=== PATIENT | male | born 1990 | race Caucasian/White ===

== ENCOUNTER 2021-12-06 16:10 | Emergency (ER) | payer OTHER, SELFPAY ==
[2021-12-06 16:27] VITALS: BP 120/62; PULSE 67; RESP 16; TEMP 37.1; O2SAT 98
--- NOTE | 2021-12-06 17:51 | ED.URI ---
HPI - URI/Sore Throat General Chief Complaint: Upper Respiratory Infection Stated Complaint: Sore Throat Time Seen by Provider: 12/06/21 17:30 Source: RN notes reviewed and old records reviewed Mode of arrival: ambulatory Limitations: no limitations History of Present Illness HPI Narrative: 31-year-old male who presents to [facility] care with complaints of sore throat which started yesterday about 3:30- 4:00 with a low grade fever. Patient denies any chills or sweats or any body aches, Patient states that throat feels sore, clogged and knotted with difficulty swallowing, denies any shortness of breath or any cough, Patient denies any history of acid reflux or history of indigestion. Patient has not taken any OTC medications for his symptoms. MD elicited complaint: sore throat Related Data Allergies Allergy/AdvReac Type Severity Reaction Status Date / Time No Known Allergies Allergy Verified 12/07/21 23:40 Review of Systems Review of Systems: CONSTITUTIONAL: Reports low grade fever,no chills, or sweats. EYES: Denies visual changes, redness, or discharge. ENT: Denies rhinorrhea, congestion, positive for sore throat, no otalgia. CARDIOVASCULAR: Denies chest pain, palpitations, or edema. RESPIRATORY: Denies cough or dyspnea. GASTROINTESTINAL: Denies abdominal pain, nausea, vomiting, or diarrhea. GENITOURINARY: Denies dysuria or hematuria. SKIN: Denies rash or itching. MUSCULOSKELETAL: Denies back pain, joint pain, or myalgia. NEUROLOGIC: Denies headache, numbness, or weakness. PSYCHIATRIC: Denies anxiety or depression. PMFSH Surgical History Surgical History No history of previous surgery Social History Social History Smoking status: Current every day smoker Tobacco type: cigarettes Alcohol intake: never Substance use type: marijuana Gender identity (if verbalized by the patient): Male Exam Narrative: GENERAL: Well-appearing, well-nourished, and in no acute distress. HEAD: Normocephalic, atraumatic. EYES: PERRLA and EOMI. ENT: Nares clear, no rhinorrhea or epistaxis. Mucous membranes moist.TM's normal with good light reflex, throat with some redness no lesions or exudates or tonsil swelling NECK: Supple. No lymphadenopathy CHEST: Clear to auscultation. No respiratory distress.SAO2 98% on room air HEART: Regular rate and rhythm. No murmur heard. Normal peripheral pulses. ABDOMEN: Soft, nontender, nondistended, normal active bowel sounds. EXTREMITIES: Normal range of motion. No edema. SKIN: Warm, dry, no rash. NEURO: No focal deficits. Alert and oriented x3. Course Course Level of Care: Express Care Visit Vital Signs Vital signs: Vital Signs Temperature 37.1 C 12/06/21 16:27 Pulse Rate 67 12/06/21 16:27 Respiratory Rate 16 12/06/21 16:27 Blood Pressure 120/62 12/06/21 16:27 Pulse Oximetry 98 12/06/21 16:27 Temperature 37.1 C 12/06/21 16:27 Pulse Rate 67 12/06/21 16:27 Respiratory Rate 16 12/06/21 16:27 Blood Pressure 120/62 12/06/21 16:27 Pulse Oximetry 98 12/06/21 16:27 MDM - URI/Sore Throat Differential Diagnosis Differential diagnosis: Likely upper respiratory infection, pharyngitis and other (strep throat) Medical Records Attestation: I reviewed the patient's medical records. Lab Data Attestation: I reviewed the patient's lab results. Lab results narrative: strep screen neg Labs: Strep Screen Presumptive Negative *(Reference Range: Negative)* Critical Care Time Critical Care Time Critical Care Time: No Discharge Plan Discharge Clinical Impression: Pharyngitis Patient Disposition: Home, Self-Care Condition: Stable Instructions: Pharyngitis (ED) Additional Instructions: Your strep test today was negative. A throat culture will be sent to the laboratory for further testing. IF the
== END 2021-12-06 18:10 | disposition home or self-care (01) ==
PROVIDERS: Emergency Provider Registered Nurse
DX: J02.9 Acute pharyngitis, unspecified (principal); F17.210 Nicotine dependence, cigarettes, uncomplicated
CPT/HCPCS: 87081; 87880; 99213; G0463

== ENCOUNTER 2021-12-07 23:01 | Emergency (ER) | payer OTHER, SELFPAY ==
[2021-12-07 23:03] VITALS: BP 166/92; PULSE 80; RESP 16; TEMP 36.4; O2SAT 100
--- NOTE | 2021-12-08 01:06 | ED.NECK ---
HPI - Neck Pain/Injury General Chief Complaint: Neck Pain/Injury Stated Complaint: neck swelling Time Seen by Provider: 12/08/21 00:21 Source: patient History of Present Illness HPI Narrative: Patient presents with sore throat. Has had symptoms for the past couple days was seen in urgent care had a negative strep swab and was started on steroids. Patient did not take any of his steroids feeling symptoms are getting better but he is having a hard time sleeping tonight because he felt like he is having hard time breathing so he came to the ER for evaluation. Feels like his throat was closing up he is feeling improved at the time of ER evaluation. He denies irritation in throat worse with swallowing reports mild cough denies any lightheadedness or dizziness. Reports some subjective fevers at home. Denies any nausea or vomiting. Related Data Allergies Allergy/AdvReac Type Severity Reaction Status Date / Time No Known Allergies Allergy Verified 12/07/21 23:40 Review of Systems Review of Systems: CONSTITUTIONAL: Denies fever, chills, or sweats. EYES: Denies visual changes, redness, or discharge. ENT: Denies rhinorrhea, congestion, or otalgia. CARDIOVASCULAR: Denies chest pain, palpitations, or edema. RESPIRATORY: Denies cough or dyspnea. GASTROINTESTINAL: Denies abdominal pain, nausea, vomiting, or diarrhea. GENITOURINARY: Denies dysuria or hematuria. SKIN: Denies rash or itching. MUSCULOSKELETAL: Denies back pain, joint pain, or myalgia. NEUROLOGIC: Denies headache, numbness, dizziness, or weakness. PSYCHIATRIC: Denies anxiety or depression. All systems reviewed & are unremarkable except as noted in HPI and below PMFSH Surgical History Surgical History No history of previous surgery Social History Social History Smoking status: Current every day smoker Tobacco type: cigarettes Alcohol intake: never Substance use type: marijuana Gender identity (if verbalized by the patient): Male Exam Narrative: GENERAL: Well-appearing, well-nourished, and in no acute distress. HEAD: Normocephalic, atraumatic. EYES: PERRLA and EOMI. ENT: Nares clear, no rhinorrhea or epistaxis. Mucous membranes moist. Diffuse posterior erythema no uvular deviation no exudates NECK: Supple. No masses. No JVD no lymphadenopathy CHEST: Clear to auscultation. No respiratory distress. No wheezes rales or rhonchi HEART: Regular rate and rhythm. No murmur heard. Normal peripheral pulses. EXTREMITIES: Normal range of motion. No edema. SKIN: Warm, dry, no rash. NEURO: No focal deficits. Alert and oriented x3. PSYCH: Normal mood and affect. Course Vital Signs Vital signs: Vital Signs Temperature 36.4 C 12/07/21 23:03 Pulse Rate 80 12/07/21 23:03 Respiratory Rate 16 12/07/21 23:03 Blood Pressure 166/92 H 12/07/21 23:03 Pulse Oximetry 100 12/07/21 23:03 Temperature 36.4 C 12/07/21 23:03 Pulse Rate 77 12/08/21 01:16 Respiratory Rate 16 12/08/21 01:16 Blood Pressure 136/92 H 12/08/21 01:16 Pulse Oximetry 98 12/08/21 01:16 MDM - Neck Pain/Injury MDM Narrative Medical decision making narrative: H&P as above, vss, pt looks clinically well, exam injection in the posterior pharynx, labs/img considered, symptomatic relief available as needed, on reevaluation pt continues to looks clinically well. Suspect pharyngitis, dns airway compromise, peritonsillar abscess, food impaction as patient is talking comfortably and tolerating his secretions. plan to tx/monitor as op w/ pcm f/u findings/plan discussed with pt, pt agree/comfortable with plan, return precautions given Discharge Plan Discharge Clinical Impression: Pharyngitis Qualifiers: Pharyngitis/tonsillitis etiology: unspecified etiology Qualified Code(s): J02.9 - Acute pharyngitis, unspecified Patient Disposition: Home, Self-Care Condition: Improve
[2021-12-08] MEDS: predniSONE 20 MG TABLET 60 MG PO (01:07)
[2021-12-08] MEDS: KETOROLAC 30 MG/ML VIAL (*BKC) IM (01:08)
[2021-12-08 01:16] VITALS: BP 136/92; PULSE 77; RESP 16; O2SAT 98
== END 2021-12-08 01:15 | disposition home or self-care (01) ==
PROVIDERS: Emergency Provider Emergency Medicine
DX: J02.9 Acute pharyngitis, unspecified (principal); F17.210 Nicotine dependence, cigarettes, uncomplicated
CPT/HCPCS: 96372; 99283; J1885; J7512

== ENCOUNTER 2025-03-21 16:34 | Emergency (ER) | payer MEDICARE, SELFPAY ==
--- NOTE | ~2025-03-21 | XR_ITS ---
Exam: Left ankle minimum 3 views. Clinical history: Rolled left ankle/foot. Pain. TECHNIQUE: 4 images of the left ankle were obtained. Comparisons: None. FINDINGS: Bone mineralization is within normal limits. No fracture. No dislocation. Soft tissue swelling about the left ankle. Talar dome is unremarkable. IMPRESSION: 1. No acute bony abnormality identified. If symptoms persist or worsen, consider a short-term follow-up study or additional imaging for furthe r assessment. Reviewed, dictated and finalized at location A. IMPRESSION: 1. No acute bony abnormality identified. If symptoms persist or worsen, consider a short-term follow-up study or additio nal imaging for further assessment.
--- NOTE | ~2025-03-21 | XR_ITS ---
Exam: Left foot x-rays minimum 3 views. TECHNIQUE: 4 images of the left foot were obtained. CLINICAL HISTORY: Rolled left ankle/foot. Pain. Comparisons: None. FINDINGS: Bone mineralization is within its. There are 2 less than 4 mm ossific densities along the dorsum of the navicular bone. Differential inc ludes osteophytes versus tiny avulsion fractures of indeterminate age. Correlate for point tenderness . No other possible fractures identified. Soft tissue swelling about the left foot. IMPRESSION: 1.There are two less than 4 mm ossific densities along the dorsum of the navicular bone. Differential includes osteophytes versus tiny avulsion fractures of indeterminate age. Correlate for point tender ness. Consider a CT or MRI for further assessment. 2.No other possible fractures identified. Reviewed, dictated and finalized at location A. IMPRESSION: 1.There are two less than 4 mm ossific densities along the dorsum of the navicu lar bone. Differential includes osteophytes versus tiny avulsion fractures of i ndeterminate age. Correlate for point tenderness. Consider a CT or MRI for furt her assessment. 2.No other possible fractures identified.
--- OUTSIDE RECORDS SUMMARY | 2025-03-21 16:37 | XMS_ITS | Clinical Summary ---
Author Organization [facility] Address [address] [place] [address] Care Team Providers Care Braided Rug Maker Name Role Phone No, Physician Primary Care Provider [phone] Allergies No known active allergies Social History Tobacco Use Types Packs/Day Years Used Date Smoking Tobacco: Every Day Cigarettes Personal Safety Answer Date Recorded Have you ever been in or are you currently in a harmful physical or emotional relationship or is someone making you feel afraid or unsafe? Denies 07/24/2024 Sex and Gender Information Value Date Recorded Sex Assigned at Not on file Legal Sex Male 5:31 PM LINE DANCER Gender Identity Not on file Sexual Orientation Not on file Obstetrics History Last Filed Vital Signs Vital Sign Reading Time Taken Comments Blood Pressure 118/73 07/24/2024 7:45 PM LINE DANCER Pulse 81 07/24/2024 8:25 PM LINE DANCER Temperature 37.2 C (99 F) 07/24/2024 3:36 PM LINE DANCER Respiratory Rate 14 07/24/2024 7:10 PM LINE DANCER Oxygen Saturation 92% 07/24/2024 8:25 PM LINE DANCER Inhaled Oxygen Concentration - - Weight 58.5 kg (129 lb) 07/24/2024 3:36 PM LINE DANCER Height 170.2 cm (5' 7) 07/24/2024 3:36 PM LINE DANCER Body Mass Index 20.2 07/24/2024 3:36 PM LINE DANCER Plan of Treatment Health Maintenance Due Date Last Done Comments Depression Screening 1990 Hepatitis C Screening 1988 DTaP/Tdap/Td Vaccine (1 - Tdap) 1999 Varicella Vaccines (1 of 2 - 13+ 2-dose series) 2000 Hepatitis B Screening 2006 Regular Well Visit/Exam 18-64 2006 Pneumococcal vaccine <65 (1 of 2 - PCV) 2007 HPV Vaccines (1 - 3-dose SCDM series) 2015 Influenza Vaccine (#1) 2025 Insurance [facility] Care Teams Braided Rug Maker Relationship Specialty Start Date End Date No, Physician PCP - General 09/07/21
--- OUTSIDE RECORDS SUMMARY | 2025-03-21 16:37 | XMS_ITS | Patient Health Record ---
Author Organization [facility] [employer] Address [address] [address] Care Team Providers Care Gis Programmer Name Role Phone Ritika Jeffrey Unavailable [phone] Reason For Referral No Information Plan Of Treatment No Information
[2025-03-21 16:44] VITALS: BP 119/81; PULSE 81; RESP 16; TEMP 37.2; O2SAT 97
--- NOTE | 2025-03-21 16:45 | ED.LOWEXIN ---
HPI - Extremity Injury (Lower) General Chief Complaint: Extremity Injury, Lower Stated Complaint: left foot injury Source: patient Mode of arrival: ambulatory Limitations: no limitations History of Present Illness HPI Narrative: 34 y/o male presented for c/o pain and swelling to left foot and ankle after injury at 1100 today. States he works for [employer], and stepped off of a porch and rolled the ankle. He continued to work the rest of the day. Has not taken anything for pain. Denies deformity, numbness, tingling or weakness. Endorses pain is only when walking, none at rest, and says it currently feels better than at the time of injury. Related Data Home Medications ?Medication ?Instructions ?Recorded ?Confirmed ?Last Taken ?Type No Home Medications 03/21/25 03/21/25 Unknown History Allergies Allergy/AdvReac Type Severity Reaction Status Date / Time No Known Allergies Allergy Verified 03/21/25 16:48 Review of Systems Review of Systems: CONSTITUTIONAL: Denies body aches, fever, chills EYES: Denies visual changes ENT: Denies rhinorrhea, congestion CARDIOVASCULAR: Denies chest pain, palpitations, or edema. RESPIRATORY: Denies cough or dyspnea. SKIN: Denies rash, itching, or wounds. MUSCULOSKELETAL: reports Foot and ankle pain NEUROLOGIC: Denies headache, numbness, tingling, or weakness. All systems reviewed & are unremarkable except as noted in HPI and below PMFSH Surgical History Surgical History No history of previous surgery Social History Social History Smoking status: Current every day smoker Tobacco type: cigarettes Alcohol intake: never Substance use type: marijuana Gender identity (if verbalized by the patient): Male Comments At time of signature, I have reviewed and agree with nursing past medical, surgical, social and family history unless otherwise noted. Please see nursing chart for further information. There is no relevant family history pertinent to the presenting complaint Exam Narrative: GENERAL: Well-appearing, CHEST: Speaks in full sentences. No respiratory distress. HEART: Regular rate and rhythm. Normal and equal peripheral pulses. EXTREMITIES: left foot has normal strength and sensation, nearly normal range of motion at ankle and toes; 5th toe endorses pain with movement. Swelling and TTP to lateral foot over 3-5 metatarsals. tender over anterior lateral malleolus. No open wounds, or obvious deformity; alignment normal, pulse palpable and equal bilaterally, skin warm, dry, pink. Capillary refill less than 3 seconds. SKIN: Warm, dry, no rash. NEURO: Alert and oriented x3. PSYCH: Normal mood and affect Course Course Emergency Course: Patient is aware of diagnosis, understands and agrees to treatment plan. Anticipatory guidance given. Patient agrees to follow-up as directed and is aware of reasons to seek care at the emergency department. Portions of this record may have been created with voice recognition software Level of Care: Express Care Visit Vital Signs Vital signs: Vital Signs Temperature 99.0 F 03/21/25 16:44 Pulse Rate 81 03/21/25 16:44 Respiratory Rate 16 03/21/25 16:44 Blood Pressure 119/81 03/21/25 16:44 Pulse Oximetry 97 03/21/25 16:44 Oxygen Delivery Room Air 03/21/25 16:44 Temperature 99.0 F 03/21/25 16:44 Pulse Rate 81 03/21/25 16:44 Respiratory Rate 16 03/21/25 16:44 Blood Pressure 119/81 03/21/25 16:44 Pulse Oximetry 97 03/21/25 16:44 Oxygen Delivery Room Air 03/21/25 16:44 Reviewed MDM - Extremity Injury (Lower) MDM Narrative Medical decision making narrative: Discussed physical exam findings and x-ray. No point tenderness of navicular bone. OLIVER applied. Advised supportive measures and signs/symptoms to go to the ER. Pt is appropriate for outpt treatment and f/u. Differential Diagnosis Differential diagnosis: Likely ankle sprain and strain and ankle fracture Imaging Data Radiologist's impression: Patient: John Hidalgo : 1990 MR#: [id number] Age: 34 Acct:[id number] Loc: [facility] ADM Date: 03/21/25Attending Dr: Exam: Left ankle minimum 3 views. Clinical history: Rolled left ankle/foot. Pain. TECHNIQUE: 4 images of the left ankle were obtained. Comparisons: None. FINDINGS: Bone mineralization is within normal limits. No fracture. No dislocation. Soft tissue swelling about the left ankle. Talar dome is unremarkable. IMPRESSION: 1. No acute bony abnormality identified. If symptoms persist or worsen, consider a short-term follow-up study or additional imaging for further assessment. --- Patient: John Hidalgo : 1990 MR#: [id number] Age: 34 Acct:[id number] Loc: [facility] ADM Date: 03/21/25Attending Dr: Exam: Left foot x-rays minimum 3 views. TECHNIQUE: 4 images of the left foot were obtained. CLINICAL HISTORY: Rolled left ankle/foot. Pain. Comparisons: None. FINDINGS: Bone mineralization is within its. There are 2 less than 4 mm ossific densities along the dorsum of the navicular bone. Differential includes osteophytes versus tiny avulsion fractures of indeterminate age. Correlate for point tenderness. No other possible fractures identified. Soft tissue swelling about the left foot. IMPRESSION: 1.There are two less than 4 mm ossific densities along the dorsum of the navicular bone. Differential includes osteophytes versus tiny avulsion fractures of indeterminate age. Correlate for point tenderness. Consider a CT or MRI for further assessment. 2.No other possible fractures identified. Discharge Plan Discharge Clinical Impression: Foot sprain Patient Disposition: Home Condition: Stable Instructions: Antibiotic Form, Foot Sprain (ED) Additional Instructions: Rest and elevate the left leg; bear weight as tolerated . Avoid excessive walking, running or jumping until symptoms are fully resolved. If you need additional work restriction instructions please follow up with your primary care provider or an exterior interior specialist. Apply ice 15-20 minute intervals several times a day Keep it wrapped with OLIVER or use a soft ankle splint Motrin 800mg every 8 hours, alternate with Tylenol 1000mg every 8 hours as needed Follow up with your primary care provider as needed go to the ER for worsening symptoms or concerns Patient Language: Danish Prescriptions: No Action No Home Medications Follow-up/Referrals: Watson Wade MD [Physician] - PHYSICIAN,TIRE BUILDER [Primary Care Provider] - Stand Alone Forms: Work/School Release IP
== END 2025-03-21 17:39 | disposition home or self-care (01) ==
PROVIDERS: Emergency Provider Nurse Practitioner Family
DX: S93.602A Unspecified sprain of left foot, initial encounter (principal); F17.210 Nicotine dependence, cigarettes, uncomplicated; X50.0XXA Overexertion from strenuous movement or load, initial encounter
CPT/HCPCS: 73610; 73630; 99213; G0463